=== PATIENT | male | born 1965 | race Caucasian/White ===

== ENCOUNTER 2021-04-27 21:06 | Inpatient (IN) | payer OTHER ==
[~2021-04-27] VITALS: Ht 175.3 cm; Wt 94.8 kg
[2021-04-28] MEDS ORDERED: APIXABAN 5 MG TAB PO ONE (01:15)
[2021-04-28] MEDS ORDERED: FLUT250M2 INH (01:21)
[2021-04-28] MEDS ORDERED: FERR-7 PO (01:21)
[2021-04-28] MEDS ORDERED: ALBUAER3 IN (01:21)
[2021-04-28] MEDS ORDERED: LISI40TA11 PO (01:21)
[2021-04-28] MEDS ORDERED: HYDROcodone-ACET 10/325MG TAB PO PRN (02:00)
[2021-04-28] MEDS: HYDROcodone-ACET 10/325MG TAB PO PRN ×3 (02:17→16:38)
[2021-04-28 02:34] VITALS: BP 106/57
[2021-04-28 05:01] VITALS: BP 93/56
[2021-04-28] MEDS ORDERED: NAP500T PO (05:14)
[2021-04-28 08:50] VITALS: BP 112/52
[2021-04-28] MEDS ORDERED: APIXABAN 5 MG TAB PO SCH (10:00)
[2021-04-28 12:49] VITALS: BP 110/69
[2021-04-28 15:14] LABS: Eosinophils # (auto) 0.1 10 ^3/uL (0-0.8); Hemoglobin 9.3 g/dL (13.5-17.5); Lymphocytes # (auto) 1.1 10 ^3/uL (0.4-5.4); Mean Corpuscular Hemoglobin 24.8 pg (28.0-32.0)
[2021-04-28 15:16] LABS: Basophils # (auto) 0 10 ^3/uL (0-0.2); Basophils % (auto) 0.4 % (0.0-2.0); Eosinophils % (auto) 0.9 % (0.0-7.0); Hematocrit 27.8 % (41.0-53.0); Mean Corpuscular Hgb Conc. 33.3 g/dL (32.0-36.0); Mean Corpuscular Volume 74.7 fL (80.0-100.0); Monocytes % (auto) 10.1 % (0.0-12.0); Neutrophils # (auto) 7.7 10 ^3/uL (1.6-8.6); Neutrophils % (auto) 77.6 % (37.0-80.0); Red Blood Cells 3.73 10^6/uL (4.5-5.90); Red Cell Distribution Width 17.3 % (11.8-14.3)
[2021-04-28 15:35] LABS: INR 1.13 (0.9-1.15); Partial Thromboplastin Time 36.1 sec (23.6-33.0)
[2021-04-28 16:58] VITALS: BP 101/61
[2021-04-28] MEDS ORDERED: WARFARIN SODIUM 5 MG TAB PO SCH (17:00)
[2021-04-28] MEDS ORDERED: WARFARIN SODIUM 10 MG TAB PO ONE (18:00)
[2021-04-28] MEDS: CIPROFLOXACIN HCL 500 MG TAB PO SCH (20:32)
[2021-04-28 22:14] VITALS: BP 100/55
[2021-04-29] MEDS: ENOXAPARIN SOD 100 MG/1 ML SYRINGE SC SCH ×3 (02:34→21:24)
[2021-04-29] MEDS: HYDROcodone-ACET 10/325MG TAB PO PRN ×2 (04:58→21:25)
[2021-04-29 05:32] VITALS: BP 101/59
[2021-04-29 06:04] LABS: Basophils # (auto) 0 10 ^3/uL (0-0.2); Eosinophils # (auto) 0.1 10 ^3/uL (0-0.8); Lymphocytes # (auto) 1.3 10 ^3/uL (0.4-5.4); Monocytes # (auto) 0.9 10 ^3/uL (0-1.3)
[2021-04-29 06:05] LABS: INR 1.17 (0.9-1.15)
[2021-04-29 06:06] LABS: Basophils % (auto) 0.3 % (0.0-2.0); Eosinophils % (auto) 1.8 % (0.0-7.0); Hematocrit 26.1 % (41.0-53.0); Hemoglobin 8.8 g/dL (13.5-17.5); Lymphocytes % (auto) 17.4 % (10.0-50.0); Mean Corpuscular Hemoglobin 25.1 pg (28.0-32.0); Mean Corpuscular Hgb Conc. 33.7 g/dL (32.0-36.0); Mean Corpuscular Volume 74.5 fL (80.0-100.0); Monocytes % (auto) 12.1 % (0.0-12.0); Neutrophils # (auto) 5.1 10 ^3/uL (1.6-8.6); Neutrophils % (auto) 68.4 % (37.0-80.0); Red Cell Distribution Width 17.3 % (11.8-14.3); White Blood Cell 7.5 10^3/uL (4.4-10.8)
[2021-04-29 06:07] LABS: BUN/Creatinine Ratio 20.2; Calcium 8.6 mg/dL (8.5-10.1); Potassium 4.5 mmol/L (3.5-5.1)
[2021-04-29 08:44] VITALS: BP 111/65
[2021-04-29] MEDS: LISINOPRIL 10 MG TAB PO SCH (09:25)
[2021-04-29] MEDS: CIPROFLOXACIN HCL 500 MG TAB PO SCH ×2 (09:26→21:24)
[2021-04-29 12:38] VITALS: BP 105/60
[2021-04-29 17:21] VITALS: BP 128/62
[2021-04-29] MEDS: WARFARIN SODIUM 10 MG TAB PO SCH (18:26)
[2021-04-29 21:42] VITALS: BP 105/62
[2021-04-30 04:55] VITALS: BP 105/55
[2021-04-30] MEDS: HYDROcodone-ACET 10/325MG TAB PO PRN ×2 (05:33→21:16)
[2021-04-30 06:21] LABS: INR 1.29 (0.9-1.15); Partial Thromboplastin Time 36.4 sec (23.6-33.0)
[2021-04-30 09:00] VITALS: BP 101/57
[2021-04-30 09:52] VITALS: BP 99/54
[2021-04-30] MEDS: CIPROFLOXACIN HCL 500 MG TAB PO SCH ×2 (09:56→21:16)
[2021-04-30] MEDS: ENOXAPARIN SOD 100 MG/1 ML SYRINGE SC SCH ×2 (09:57→21:16)
[2021-04-30] MEDS: LISINOPRIL 10 MG TAB PO SCH (09:58)
[2021-04-30 13:00] VITALS: BP 97/51
[2021-04-30] MEDS: WARFARIN SODIUM 10 MG TAB PO SCH (16:32)
[2021-04-30 17:00] VITALS: BP 101/67
[2021-04-30] MEDS ORDERED: WARFARIN SODIUM 10 MG TAB PO ONE (17:00)
[2021-04-30 22:00] VITALS: BP 95/58
[2021-05-01 05:19] VITALS: BP 100/59
[2021-05-01 06:00] LABS: INR 2.15 (0.9-1.15); Partial Thromboplastin Time 44.5 sec (23.6-33.0)
[2021-05-01 08:00] VITALS: BP 97/59
[2021-05-01] MEDS: LISINOPRIL 10 MG TAB PO SCH (10:00)
[2021-05-01] MEDS: ENOXAPARIN SOD 100 MG/1 ML SYRINGE SC SCH (10:50)
[2021-05-01] MEDS: CIPROFLOXACIN HCL 500 MG TAB PO SCH (10:50)
[2021-05-01 12:00] VITALS: BP 99/59
[2021-05-01] MEDS ORDERED: WARF10TA5 PO (13:22)
[2021-05-01 16:00] VITALS: BP 105/59
[2021-05-01] MEDS: WARFARIN SODIUM 10 MG TAB PO SCH (16:26)
== END 2021-05-01 17:00 | DRG 301 ==
LOC: EEVIPCON 21:09 → ER 21:09 → OVERFLOW 04-28 00:56 → WEST WING 04-28 02:36
PROVIDERS: ADMIT Internal Medicine; ATTEND Internal Medicine
DX: I82.401 Acute embolism and thrombosis of unspecified deep veins of right lower extremity (principal); I10 Essential (primary) hypertension; F17.200 Nicotine dependence, unspecified, uncomplicated; F12.90 Cannabis use, unspecified, uncomplicated; J45.909 Unspecified asthma, uncomplicated; Z20.822 Contact with and (suspected) exposure to COVID-19; Z83.3 Family history of diabetes mellitus
CPT/HCPCS: 36415; 80048; 85025; 85610; 85730; 87081; 87426; 93005; 93971; G0378